=== PATIENT | female | born 2000 | race Two or more races ===

== ENCOUNTER 2021-10-28 05:19 | Inpatient (IN) | payer MEDICAID ==
[~2021-10-28] VITALS: Ht 154.9 cm; Wt 63.5 kg
[2021-10-28] MEDS ORDERED: PREN-96 PO (05:41)
[2021-10-28] MEDS ORDERED: CARBOPROST TROMETHAMINE 250 MCG/1ML VIAL IM ONE (06:30)
[2021-10-28] MEDS ORDERED: ONDANSETRON ODT 4 MG TAB PO PRN ×2 (06:30→13:45)
[2021-10-28] MEDS ORDERED: ACETAMINOPHEN 325 MG TAB PO PRN ×2 (06:30→13:45)
[2021-10-28] MEDS ORDERED: METHYLERGONOVINE MALEATE 0.2 MG/ML AMP IM ONE (06:30)
[2021-10-28] MEDS ORDERED: PROMETHAZINE HCL 25 MG/ML 1ML IV PRN (06:30)
[2021-10-28] MEDS ORDERED: PHISODERM TOP SOLN 240ML BTL TOP PRN (06:30)
[2021-10-28] MEDS ORDERED: LACT. RINGERS/OXYTOCIN 20UNITS 500 ML IV ONE ×2 (06:30→07:00)
[2021-10-28] MEDS ORDERED: BUTORPHANOL TARTRATE 2 MG/1 ML VIAL IV PRN ×2 (06:30)
[2021-10-28] MEDS ORDERED: LIDOCAINE 2%HCL (LOCAL ANESTH.) INJ 10ml MDV IJ PRN (06:30)
[2021-10-28] MEDS ORDERED: IBUPROFEN 600 MG TAB PO PRN ×2 (06:30→13:45)
[2021-10-28] MEDS ORDERED: DERMOPLAST 60ML BOTTLE TOP PRN (06:30)
[2021-10-28] MEDS ORDERED: LACTATED RINGER'S 1,000 ML IV SCH (06:30)
[2021-10-28] MEDS ORDERED: WITCH HAZEL-GLYCERIN PAD TOP PRN (06:30)
[2021-10-28 07:09] LABS: Basophils # (auto) 0 10 ^3/uL (0-0.2); Eosinophils # (auto) 0 10 ^3/uL (0-0.8); Hemoglobin 8.3 g/dL (12.2-16.2); Lymphocytes # (auto) 1.6 10 ^3/uL (0.4-5.4); Mean Corpuscular Hgb Conc. 31.6 g/dL (32.0-36.0); Monocytes # (auto) 0.7 10 ^3/uL (0-1.3); White Blood Cell 12.7 10^3/uL (4.4-10.8)
[2021-10-28 07:11] LABS: Basophils % (auto) 0.2 % (0.0-2.0); Hematocrit 26.4 % (36.0-46.0); Lymphocytes % (auto) 12.8 % (10.0-50.0); Mean Corpuscular Volume 69.5 fL (80.0-100.0); Monocytes % (auto) 5.5 % (0.0-12.0); Neutrophils # (auto) 10.3 10 ^3/uL (1.6-8.6); Neutrophils % (auto) 81.5 % (37.0-80.0); Nucleated Red Blood Cells % 0.1 %; Red Cell Distribution Width 19.2 % (11.8-14.3); Urine Bacteria FEW /hpf (None Seen); Urine Blood Negative /uL (Negative); Urine Specific Gravity 1.014 (1.001-1.035); Urine WBC 1 /hpf (0 - 5)
[2021-10-28 07:20] LABS: INR 0.98 (0.9-1.15); Partial Thromboplastin Time 21.8 sec (23.6-33.0)
[2021-10-28 07:24] LABS: Albumin 2.9 g/dL (3.4-5.0); Calcium 8.4 mg/dL (8.5-10.1); Potassium 3.4 mmol/L (3.5-5.1)
[2021-10-28 07:26] LABS: Alcohol, Urine < 3.0 mg/dL (0-10); Amphetamine Screen, Urine NEGATIVE (NEGATIVE); Barbiturate Scree,Urine NEGATIVE (NEGATIVE); Benzodiazephine Screen, Urine NEGATIVE (NEGATIVE); Cannabinoid Screen, Urine NEGATIVE (NEGATIVE); Cocaine Screen, Urine NEGATIVE (NEGATIVE); Opiate Scree,Urine NEGATIVE (NEGATIVE); Phencyclidine Screen, Urine NEGATIVE (NEGATIVE)
[2021-10-28 07:27] LABS: BUN/Creatinine Ratio 8.8; Bilirubin, Total 0.6 mg/dL (0.2-1.0); Total Protein 6.9 g/dL (6.4-8.2)
[2021-10-28] MEDS ORDERED: fentaNYL CITRATE 100 MCG/2 ML VL IV ONE (08:00)
[2021-10-28] MEDS ORDERED: ROPIVACAINE HCL 200 ML EPI SCH (08:00)
[2021-10-28] MEDS ORDERED: ePHEDrine SULFATE 50 MG/ML AMP IV ONE (08:00)
[2021-10-28] MEDS ORDERED: LACTATED RINGER'S 1,000 ML IV ONE (08:00)
[2021-10-28] MEDS ORDERED: NALOXONE HCL 0.4 MG/ML VIAL IV ONE (08:00)
[2021-10-28] MEDS ORDERED: miSOPROStol 100 mcg TAB PR PRN (10:24)
[2021-10-28] MEDS ORDERED: miSOPROStol 100 mcg TAB SL PRN (10:30)
[2021-10-28] MEDS ORDERED: METHYLERGONOVINE MALEATE 0.2 MG/ML AMP IM PRN (10:30)
[2021-10-28] MEDS ORDERED: IBUPROFEN 800 MG TAB PO SCH ×2 (12:00→18:00)
[2021-10-28] MEDS: ceFAZolin 1GM/50ML 50 ML IV SCH ×2 (14:17→22:10)
[2021-10-28 16:00] VITALS: BP 112/60
[2021-10-28 19:30] VITALS: BP 110/58
[2021-10-28] MEDS ORDERED: DOCUSATE SOD 100 MG CAP PO SCH ×2 (22:00)
[2021-10-28] MEDS: IBUPROFEN 800 MG TAB PO SCH (22:11)
[2021-10-28] MEDS ORDERED: DOCUSATE SOD 100 MG CAP PO PRN (22:30)
[2021-10-28 23:00] VITALS: BP 99/56
[2021-10-29 03:00] VITALS: BP 97/60
[2021-10-29 06:06] LABS: RPR Non Reactive (Non Reactive)
[2021-10-29 09:07] LABS: Rubella Antibodies, IgG 7.74 index (Immune >0.99)
[2021-10-29 11:00] VITALS: BP 98/54
[2021-10-29] MEDS: IBUPROFEN 800 MG TAB PO SCH (12:39)
[2021-10-29 15:00] VITALS: BP 101/71
== END 2021-10-29 16:38 | disposition home or self-care (01) | DRG 560 ==
LOC: UNDOADMOB 05:19 → LDRP 05:19 → OBSVTOIN 06:12 → INTOOBSV 06:12 → LDRP 06:21
PROVIDERS: ADMIT Obstetrics & Gynecology Obstetrics; ATTEND Obstetrics & Gynecology Obstetrics
PROC: 10E0XZZ Delivery of Products of Conception, External Approach (ICD-10-PCS; principal; 2021-10-28)
PROC: 0KQM0ZZ Repair Perineum Muscle, Open Approach (ICD-10-PCS; 2021-10-28)
PROC: 3E0R3BZ Introduction of Anesthetic Agent into Spinal Canal, Percutaneous Approach (ICD-10-PCS; 2021-10-28)
PROC: 00HU33Z Insertion of Infusion Device into Spinal Canal, Percutaneous Approach (ICD-10-PCS; 2021-10-28)
DX: O69.81X0 Labor and delivery complicated by cord around neck, without compression, not applicable or unspecified (principal); Z37.0 Single live birth; D64.9 Anemia, unspecified; O70.1 Second degree perineal laceration during delivery; Z20.822 Contact with and (suspected) exposure to COVID-19; Z3A.39 39 weeks gestation of pregnancy; O90.81 Anemia of the puerperium
CPT/HCPCS: 36415; 59025; 59409; 62282; 80053; 80307; 81001; 81002; 85025; 85610; 85730; 86592; 86762; 86850; 86900; 86901; 86920; 94760; 96360; 96361; 96366; 96374; G0378; J0690; J2590

== ENCOUNTER → 2022-12-03 | Outpatient (CLI) | payer MEDICAID ==
[~2022-12-03] MED LIST: PREN-96 PO
== END | disposition home or self-care (01) ==
LOC: LAB 08:50
PROVIDERS: ATTEND Obstetrics & Gynecology
DX: Z34.00 Encounter for supervision of normal first pregnancy, unspecified trimester (principal); Z3A.00 Weeks of gestation of pregnancy not specified
CPT/HCPCS: 36415; 81025; 84144; 84702

== ENCOUNTER 2024-10-20 11:25 | Outpatient (CLI) | payer MEDICAID ==
[2024-10-20 11:58] LABS: Basophils # (auto) 0 10 ^3/uL (0-0.2); Basophils % (auto) 0.3 % (0.0-2.0); Eosinophils # (auto) 0.1 10 ^3/uL (0-0.8); Eosinophils % (auto) 0.8 % (0.0-7.0); Hematocrit 38.9 % (36.0-46.0); Hemoglobin 13.8 g/dL (12.2-16.2); Lymphocytes # (auto) 1.5 10 ^3/uL (0.4-5.4); Lymphocytes % (auto) 16.2 % (10.0-50.0); Mean Corpuscular Hemoglobin 29.9 pg (28.0-32.0); Mean Corpuscular Hgb Conc. 35.6 g/dL (32.0-36.0); Mean Corpuscular Volume 83.8 fL (80.0-100.0); Monocytes # (auto) 0.5 10 ^3/uL (0-1.3); Monocytes % (auto) 5.8 % (0.0-12.0); Neutrophils # (auto) 6.9 10 ^3/uL (1.6-8.6); Neutrophils % (auto) 76.9 % (37.0-80.0); Platelet Count (auto) 236 10^3/uL (140-450); Red Blood Cells 4.63 10^6/uL (4.0-5.20); Red Cell Distribution Width 16.6 % (11.8-14.3)
[2024-10-20 12:25] LABS: Amphetamine Screen, Urine Neg (NEGATIVE); Barbiturate Scree,Urine Neg (NEGATIVE); Benzodiazephine Screen, Urine Neg (NEGATIVE); Opiate Scree,Urine Neg (NEGATIVE); Phencyclidine Screen, Urine Neg (NEGATIVE)
[2024-10-20 12:26] LABS: Cannabinoid Screen, Urine Neg (NEGATIVE); Cocaine Screen, Urine Neg (NEGATIVE)
[2024-10-22 10:07] LABS: Chlamydia Trachomatis, NAA Negative (Negative); Neisseria gonorrhoeae, NAA Negative (Negative)
== END 2024-10-20 17:00 | disposition home or self-care (01) ==
LOC: LAB 11:25
PROVIDERS: ATTEND Obstetrics & Gynecology
DX: O23.40 Unspecified infection of urinary tract in pregnancy, unspecified trimester (principal); N39.0 Urinary tract infection, site not specified; Z31.430 Encounter of female for testing for genetic disease carrier status for procreative management; Z20.2 Contact with and (suspected) exposure to infections with a predominantly sexual mode of transmission; Z3A.00 Weeks of gestation of pregnancy not specified
CPT/HCPCS: 36415; 80307; 83036; 84144; 84702; 85025; 86703; 86762; 86780; 86850; 86900; 86901; 87086; 87340

== ENCOUNTER 2025-03-21 20:51 | Observation (INO) | payer MEDICAID ==
[~2025-03-21] VITALS: Ht 154.9 cm; Wt 69.4 kg
[2025-03-21 22:16] LABS: Hematocrit 27.0 % (36.0-46.0); Hemoglobin 8.6 g/dL (12.2-16.2); Mean Corpuscular Hemoglobin 23.6 pg (28.0-32.0); Mean Corpuscular Volume 73.7 fL (80.0-100.0); Nucleated Red Blood Cells % 0.3 %
[2025-03-21 22:31] LABS: Alanine Aminotransferase 14 U/L (7-40); Albumin 4.0 g/dL (3.2-4.8); Alkaline Phosphatase 101 U/L (46-116); Anion Gap 11 (5-15); Bilirubin, Total 0.5 mg/dL (0.2-1.0); Calcium 9.1 mg/dL (8.7-10.4); Carbon Dioxide 23 mmol/L (20-31); Glucose 86 mg/dL (74-106); Potassium 3.8 mmol/L (3.5-5.1); Sodium 141 mmol/L (136-145); Total Protein 6.8 g/dL (5.7-8.2); Uric Acid 3.7 mg/dL (3.1-7.8)
[2025-03-21 22:35] LABS: BUN/Creatinine Ratio 10.9 (10.0-20.0); Blood Urea Nitrogen < 5 mg/dL (9-23); Chloride 107 mmol/L (98-107)
[2025-03-21 22:38] LABS: INR 0.97 (0.9-1.15); Partial Thromboplastin Time 21.7 SEC (24.5-34.5); Prothrombin Time 10.3 sec (9.3-11.8)
[2025-03-21 22:40] LABS: Amphetamine Screen, Urine Neg (NEGATIVE); Barbiturate Scree,Urine Neg (NEGATIVE); Benzodiazephine Screen, Urine Neg (NEGATIVE); Cannabinoid Screen, Urine Neg (NEGATIVE); Cocaine Screen, Urine Neg (NEGATIVE); Opiate Scree,Urine Neg (NEGATIVE); Phencyclidine Screen, Urine Neg (NEGATIVE); Protein, Urine < 6.0 mg/dL (1-14)
[2025-03-21 22:46] LABS: Urine Protein, UAD Negative (Negative)
--- NOTE | 2025-03-21 22:55 | DVHDS2 ---
Physician Discharge Progress N Final Diagnosis: headache due to iron deficiency anemia ruled out preeclampsia Operations or Procedures: Operations or Procedures S: 24yo IUP@31.3wks presents to OB triage with c/o Headache (on and off for 3 days) took Tylenol 1000mg at 1800 without relief and intermittent lower u terine cramping. Denies UTI s/sx or vaginitis s/sx. +FM, denies UCs/LOF/VB/vision changes/RUQ pain. PNC with Dr. Benson, uncomplicated. OB hx: x2, uncomplicated and SAB x1 PMH: denies PSH: denies O: VSS, normotensive, see CPN NST reactive TOCO: no UCs PO hydration Abdomen palpated soft BLE: no edema noted urine P/C ratio is incalculable Laboratory Tests Test 03/21/25 20:51 03/21/25 21:51 Range/Units Urine Color Colorless Yellow Urine Clarity Clear Clear Urine pH 7.0 5.0-9.0 Urine Specific [place] 1.005 1.001-1.035 Urine Protein Negative Negative Urine Ketones Negative Negative Urine Blood Negative Negative /uL Urine Nitrite Negative Negative Urine Bilirubin Negative Negative Urine Urobilinogen Normal Negative mg/dL Urine Leukocyte Esterase 2+ Negative /uL Urine RBC 1 0 - 4 /hpf Urine Microscopic WBC < 1 0-5 /HPF Urine Squamous Epithelial Cells Few <5 /hpf Urine Bacteria Few H None Seen /hpf Urine Creatinine 18.91 L 30.0-125.0 mg/dL -U-r-i-n-e- -P-k-p-t-e-i-n-/-I-w-e-d-q-i-n-i-n-e- -R-a-t-i-o- -0-.-3-2- Urine Glucose Normal Normal mg/dL Urine Total Protein < 6.0 1-14 mg/dL Urine Opiates Screen Neg NEGATIVE Urine Fentanyl Screen Neg NEGATIVE Urine Barbiturates Screen Neg NEGATIVE Urine Phencyclidine Screen Neg NEGATIVE Urine Amphetamines Screen Neg NEGATIVE Urine Benzodiazepines Screen Neg NEGATIVE Urine Cocaine Screen Neg NEGATIVE Urine Cannabinoids Screen Neg NEGATIVE White Blood Count 9.5 4.4-10.8 10^3/uL Red Blood Count 3.66 L 4.0-5.20 10^6/uL Hemoglobin 8.6 L 12.2-16.2 g/dL Hematocrit 27.0 L 36.0-46.0 % Mean Corpuscular Volume 73.7 L 80.0-100.0 fL Mean Corpuscular Hemoglobin 23.6 L 28.0-32.0 pg Mean Corpuscular Hemoglobin Concent 32.0 32.0-36.0 g/dL Red Cell Distribution Width 18.3 H 11.8-14.3 % Platelet Count 202 140-450 10^3/uL Mean Platelet Volume 8.1 6.9-10.8 fL Neutrophils (%) (Auto) 69.1 37.0-80.0 % Lymphocytes (%) (Auto) 23.5 10.0-50.0 % Monocytes (%) (Auto) 6.5 0.0-12.0 % Eosinophils (%) (Auto) 0.6 0.0-7.0 % Basophils (%) (Auto) 0.3 0.0-2.0 % Neutrophils # (Auto) 6.5 1.6-8.6 10 ^3/uL Lymphocytes # (Auto) 2.2 0.4-5.4 10 ^3/uL Monocytes # (Auto) 0.6 0-1.3 10 ^3/uL Eosinophils # (Auto) 0.1 0-0.8 10 ^3/uL Basophils # (Auto) 0 0-0.2 10 ^3/uL Nucleated Red Blood Cells 0.3 % Prothrombin Time 10.3 9.3-11.8 sec Prothrombin Time INR 0.97 0.9-1.15 Activated Partial Thromboplast Time 21.7 L 24.5-34.5 SEC Sodium Level 141 136-145 mmol/L Potassium Level 3.8 3.5-5.1 mmol/L Chloride Level 107 98-107 mmol/L Carbon Dioxide Level 23 20-31 mmol/L Anion Gap 11 5-15 Blood Urea Nitrogen < 5 L 9-23 mg/dL Creatinine 0.46 L 0.550-1.02 mg/dL Glomerular Filtration Rate Calc 136 >90 mL/min BUN/Creatinine Ratio 10.9 10.0-20.0 Serum Glucose 86 74-106 mg/dL Uric Acid 3.7 3.1-7.8 mg/dL Calcium Level 9.1 8.7-10.4 mg/dL Total Bilirubin 0.5 0.2-1.0 mg/dL Aspartate Amino Transferase (AST) 24 13-40 U/L Alanine Aminotransferase (ALT) 14 7-40 U/L Alkaline Phosphatase 101 46-116 U/L Total Protein 6.8 5.7-8.2 g/dL Albumin 4.0 3.2-4.8 g/dL A: 24yo IUP@31.3wks headache due to iron deficiency anemia ruled out preeclampsia P: D/C home Advised to drink 1 gallon of water a day. Take OTC three arrows iron supplement 2 pills daily for anemia. FKC/PTL/preE precautions reviewed Dr. Benson consulted, agrees with POC. Condition on Discharge: Stable Disposition: Home Discharge Instructions: Diet: Regular Activity: No Restrictions, As Tolerated Medications: see med list Follow Up Care: Specialist: f/u with Dr. Benson as scheduled for appts Discharge Statement: "Patient was advised to return to the ER or call 911 if any headaches, dizziness, shortness of breath, chest pain, abdominal pain, bleeding, fevers, or worsening of medical condition. Patient was counseled about treatment plan, medications, possible side effects, patientverbalized understanding. All questions were answered to the best of my ability. This discharge took greater then 30 minutes in planning, reviewing documentation, counseling the patient, and discussing with other team members." Visit Coding OBGYN Date of Service: Mar 21, 2025 Billing Provider: MAGDALENA VENCES CNM CARDIOVASCULAR TECH Common Visit Codes: 28507-AHOLQWK OBS CARE (HIGH) CARDIOVASCULAR TECH Procedure Codes: 95686-72- NON-STRESS TEST MAGDALENA VENCES CNM Mar 21, 2025 22:55
== END 2025-03-21 23:04 | disposition home or self-care (01) ==
LOC: LDRP 20:51
PROVIDERS: ADMIT Obstetrics & Gynecology; ATTEND Obstetrics & Gynecology
DX: O99.013 Anemia complicating pregnancy, third trimester (principal); D50.9 Iron deficiency anemia, unspecified; O26.893 Other specified pregnancy related conditions, third trimester; R51.9 Headache, unspecified; R79.1 Abnormal coagulation profile; Z3A.31 31 weeks gestation of pregnancy; Z98.890 Other specified postprocedural states; Z79.899 Other long term (current) drug therapy
CPT/HCPCS: 36415; 59025; 80053; 80307; 81001; 81002; 82570; 84156; 84550; 85025; 85610; 85730; 94760; G0378

== ENCOUNTER 2025-04-18 12:01 | Observation (INO) | payer MEDICAID ==
[~2025-04-18] VITALS: Ht 154.9 cm; Wt 68.9 kg
--- NOTE | 2025-04-18 13:33 | DVH ---
CLINICAL HISTORY: Macrosomia COMPARISON: None TECHNIQUE: biophysical profile was performed. Transabdominal sonographic images of the fetus were obtained. FINDINGS: The fetus is in cephalic position. heart rate measures 138 BPM. Amniotic fluid index measures 16.7 cm. The placenta is anterior in position without visualized evidence of previa or abruption. BPP profile is an overall score of 8/8, with 2/2 points for breathing, with at least one episode of breathing over a 30 second duration during a 30 minute observation, 2/2 points for movements, with 3 or more discrete body or limb movements, 2/2 points for tone, with one or more episodes of extremity extension with return to flexion, or opening and closing of hand, and 2/2 points for amniotic fluid, with at least 1 pocket of amniotic fluid that measures 2 cm in 2 perpendicular planes. IMPRESSION: BPP score of 8/8.
--- NOTE | 2025-04-19 12:07 | DVHDS2 ---
Physician Discharge Progress N Final Diagnosis: macrosmia 35wks Operations or Procedures: Operations or Procedures nst reactive reviwed,ismaelo Condition on Discharge: Good Disposition: Home Discharge Instructions: Diet: Consistent carbohydrate Activity: Light activity Medications: na Follow Up Care: Specialist: 4d Discharge Statement: "Patient was advised to return to the ER or call 911 if any headaches, dizziness, shortness of breath, chest pain, abdominal pain, bleeding, fevers, or worsening of medical condition. Patient was counseled about treatment plan, medications, possible side effects, patientverbalized understanding. All questions were answered to the best of my ability. This discharge took greater then 30 minutes in planning, reviewing doc umentation, counseling the patient, and discussing with other team members." Visit Coding OBGYN Date of Service: Apr 18, 2025 Billing Provider: SOL NAVARRETE DO MUD LOGGER Common Visit Codes: [id number] OBS CARE (HIGH) MUD LOGGER Procedure Codes: 41624-30- NON-STRESS TEST SOL NAVARRETE DO Apr 19, 2025 12:07
== END 2025-04-18 13:31 | disposition home or self-care (01) ==
LOC: LDRP 12:01 → UNDOADMOB 12:01 → LDRP 12:11
PROVIDERS: ADMIT Obstetrics & Gynecology; ATTEND Obstetrics & Gynecology
DX: O36.63X0 Maternal care for excessive fetal growth, third trimester, not applicable or unspecified (principal); Z3A.35 35 weeks gestation of pregnancy; Z98.890 Other specified postprocedural states
CPT/HCPCS: 59025; 76819; 81002; 94760; A4649; G0378